=== PATIENT | male | born 1975 | race Caucasian/White ===

== ENCOUNTER 2019-02-18 19:39 | Emergency (ER) | payer BC ==
[2019-02-18] MEDS ORDERED: Lidocaine 4% Top Soln 5 ML LTA Syringe MUCMEM ONE (19:48)
[2019-02-18 19:49] VITALS: BP 145/85
--- NOTE | 2019-02-18 19:52 | EDM.PDOC ---
ED HPI GENERAL MEDICAL PROBLEM - General Chief Complaint: General Stated Complaint: tongue lac Time Seen by Provider: 02/18/19 19:48 Source of Information: Reports: Patient History Limitations: Reports: No Limitations - History of Present Illness INITIAL COMMENTS - FREE TEXT/NARRATIVE: This patient is a 43 year old male that presents to the ER. Patient reports that he was jumping off back of a trailer this morning when he accidently bit his own tongue. Patent denies falling, hitting head, loc, n, v, vision changes, dental pain, facial pain, airway closure, difficulty breathing, or any other concerns. Onset: Today Onset Date: 02/18/19 Onset Time: 08:00 Location: Reports: Other (tongue) Severity: Mild Improves with: Reports: None Worsens with: Reports: None Associated Symptoms: Reports: No Other Symptoms. Denies: Confusion, Chest Pain , Cough, cough w sputum, Diaphoresis, Fever/Chills, Headaches, Loss of Appetite , Malaise, Nausea/Vomiting, Rash, Seizure, Shortness of Breath, Syncope, Weakness Oral/Mouth Pain Score (Numeric/FACES): 4 - Related Data Allergies Allergy/AdvReac Type Severity Reaction Status Date / Time penicillin Allergy Cannot Verified 02/18/19 19:42 Remember Home Meds: Home Meds Pantoprazole [Protonix] 40 mg PO DAILY 04/16/15 [History] Liraglutide [Victoza 3-Bhaskar] 18 mg SQ DAILY 02/18/19 [History] Past Medical History Endocrine/Metabolic History: Reports: Diabetes, Type II - Past Surgical History Other HEENT Surgeries/Procedures: WISDOM TEETH Other Musculoskeletal Surgeries/Procedures:: ANKLE SURGERY Social & Family History - Family History Family Medical History: Noncontributory - Tobacco Use Smoking Status *Q: Never Smoker Second Hand Smoke Exposure: No ED ROS GENERAL - Review of Systems Review Of Systems: See Below Constitutional: Reports: No Symptoms HEENT: Reports: Other (tongue laceration) Respiratory: Reports: No Symptoms Cardiovascular: Reports: No Symptoms Endocrine: Reports: No Symptoms GI/Abdominal: Reports: No Symptoms Musculoskeletal: Reports: No Symptoms Skin: Reports: Wound (tongue) Neurological: Reports: No Symptoms ED EXAM, GENERAL - Physical Exam Exam: See Below Exam Limited By: No Limitations General Appearance: Alert, WD/WN, No Apparent Distress Eye Exam: Bilateral Eye: Normal Inspection, PERRL Ears: Normal External Exam, Normal Canal, Hearing Grossly Normal, Normal TMs Ear Exam: Bilateral Ear: Auricle Normal, Canal Normal, TM normal Nose: Normal Inspection, Normal Mucosa, No Blood Throat/Mouth: Normal Lips, Normal Teeth, Normal Gums, Normal Oropharynx, Normal Voice, No Airway Compromise, Other (tongue tip laceration with large flap, about 3 cm. No active bleeding. Will attempt to suture due to size. ) Head: Atraumatic, Normocephalic Neck: Normal Inspection, Supple, Non-Tender, Full Range of Motion Respiratory/Chest: No Respiratory Distress (Male) Exam: Deferred Rectal (Males) Exam: Deferred Extremities: Normal Inspection Neurological: Alert, Oriented Skin Exam: Warm, Dry, Normal Color, No Rash, Wound/Incision (tongue laceration) ED GENERAL MEDICAL PROCEDURES - Laceration/Wound Repair Midline Mouth Lac/wound length in cm: 2 Appearance: Clean Distal NVT: Neuro & Vascular Intact, No Tendon Injury Anesthetic Type: Topical Local Anesthesia - Bupivicaine (Marcaine): Other (Lidocaine 2% Viscous) Skin Prep: Saline Saline irrigation (cc's): 10 Exploration/Debridement/Repair: Wound Explored, In a Bloodless Field, Explored to Base, Wound Margins Revised Closed with: Sutures Suture Size: 5-0 # of Sutures: 2 Suture Type: Interrupted, Other (Chromic Gut) Tetanus Status Addressed: Yes Complications: No Course - Vital Signs Last Recorded V/S: Last Vital Signs Temp 98.1 F 02/18/19 19:44 Pulse 87 02/18/19 19:44 Resp 18 02/18/19 19:44 BP 145/85 H 02/18/19 19:44 Pulse Ox 98 02/18/19 19:44 - Orders/Labs/Meds Meds: Medications Discontinued Medications Generic Name Dose Route Start Last Admin Trade Name Freq PRN Reason Stop Dose Admin Lidocaine HCl 5 ml 02/18/19 19:48 Xylocaine 4% Top Soln MUCMEM 02/18/19 19:49 ONETIME ONE Lidocaine HCl 15 ml 02/18/19 19:57 Xylocaine 2% Viscous PO 02/18/19 19:58 ONETIME ONE Departure - Departure Time of Disposition: 20:45 Disposition: Home, Self-Care 01 Condition: Fair Clinical Impression: Tongue laceration Qualifiers: Encounter type: initial encounter Qualified Code(s): S01.512A - Laceration without foreign body of oral cavity, initial encounter - Discharge Information *PRESCRIPTION DRUG MONITORING PROGRAM REVIEWED*: Not Applicable *COPY OF PRESCRIPTION DRUG MONITORING REPORT IN PATIENT GUTIERREZ: Not Applicable Instructions: Tongue Laceration, [id number] Referrals: Demarco Kirby MD [Primary Care Provider] - Forms: ED Department Discharge Additional Instructions: Followup with primary care provider if needed Return to the ER for worsening of condition or any emergent concerns such as swelling with airway closing If wound does not heal properly, may see plastic or oral surgeon for possible revision May use mouth rinse gently Eat soft foods Sutures dissolve Tylenol for pain - Assessment/Plan Plan: PLEASE SEE RN NOTE FOR PFSH.
[2019-02-18] MEDS ORDERED: Lidocaine 2% Viscous Solution 15 ML Cup PO ONE (19:57)
== END 2019-02-18 20:50 | disposition home or self-care (01) ==
LOC: CC.ED 19:39
DX: S01.512A Laceration without foreign body of oral cavity, initial encounter (principal); E11.9 Type 2 diabetes mellitus without complications; Z88.0 Allergy status to penicillin; Z79.899 Other long term (current) drug therapy; X58.XXXA Exposure to other specified factors, initial encounter
CPT/HCPCS: 41251; 99282; A9270; 12001

== ENCOUNTER 2022-09-29 14:00 | Emergency (ER) | payer BC ==
[2022-09-29 14:16] VITALS: BP 143/91; PULSE 111
[2022-09-29] MEDS ORDERED: Lidocaine 1% 5 ML VIAL INJECT ONE (14:30)
[2022-09-29] MEDS ORDERED: Bacitracin/Neomycin/Polymyxin B Oint 0.9 GM U/D Packet TOP ONE (14:49)
== END 2022-09-29 15:25 | disposition home or self-care (01) ==
LOC: CC.ED 14:00
DX: S61.011A Laceration without foreign body of right thumb without damage to nail, initial encounter (principal); K21.9 Gastro-esophageal reflux disease without esophagitis; E11.9 Type 2 diabetes mellitus without complications; Z88.0 Allergy status to penicillin; Z79.4 Long term (current) use of insulin; Z79.899 Other long term (current) drug therapy; W26.0XXA Contact with knife, initial encounter
CPT/HCPCS: 12001; 99282; 99283; A9270-GY; J3490